=== PATIENT | male | born 1940 | race Caucasian/White ===

== ENCOUNTER 2019-01-20 09:03 | Outpatient (CLI) | payer MEDICARE, OTHER ==
--- NOTE | 2019-01-20 14:01 | XRAY Report ---
Reason: COUGH Procedure Date: 01/20/2019 Accession Number: [id number] / [id number] Procedure: XR - Chest 2 View X-Ray CPT Code: 14648 FULL RESULT: EXAM: CHEST RADIOGRAPHY EXAM DATE: 01/20/2019 09:25 AM. CLINICAL HISTORY: COUGH. COMPARISON: None. TECHNIQUE: 2 views. FINDINGS: Lungs/Pleura: Mildly prominent pulmonary markings projecting over the left heart on frontal view are not confirmed on lateral view. Bilateral airway thickening can be seen in the setting of bronchiolitis or reactive airways disease. No focal lung parenchymal consolidation identified to suggest superimposed pneumonia. No pleural effusion or pneumothorax. Mediastinum: The cardiomediastinal silhouette is not enlarged with post-CABG changes including median sternotomy. Other: None. IMPRESSION: Airway thickening is noted without definite consolidation. [facility]
== END 2019-01-20 09:04 | disposition home or self-care (01) ==
LOC: DI 09:03
PROVIDERS: ATTEND Nurse Practitioner Family
DX: R05 Cough (principal)
CPT/HCPCS: 71046

== ENCOUNTER 2019-05-11 11:40 | Outpatient (CLI) | payer MEDICARE, OTHER | END 2019-05-11 11:41 | disposition home or self-care (01) | LOC: RT 11:40 | PROVIDERS: ATTEND Internal Medicine Cardiovascular Disease | DX: I49.9 Cardiac arrhythmia, unspecified (principal); Z79.899 Other long term (current) drug therapy | CPT/HCPCS: 36415; 80053; 80061; 83721; 93005 ==

== ENCOUNTER 2019-05-11 12:11 | Outpatient (CLI) | payer MEDICARE, OTHER ==
[2019-05-11 12:58] LABS: ALBUMIN/GLOBULIN RATIO 1.2 (1.0-2.2); ALKALINE PHOSPHATASE 104 IU/L (42-121); ALT ALANINE AMINOTRANSFERASE 38 IU/L (10-60); AST ASPARTATE AMINOTRANSFERASE 25 IU/L (10-42); BILIRUBIN,TOTAL 1.1 mg/dL (0.2-1.0); BUN - BLOOD UREA NITROGEN 17 mg/dL (6-20); CALCIUM 9.5 mg/dL (8.5-10.3); CARBON DIOXIDE - CO2 30 mmol/L (21-32); CHLORIDE 103 mmol/L (101-111); CHOL/HDL RATIO 3.6 (<5.0); CHOLESTEROL 148 mg/dL; CREATININE 0.9 mg/dL (0.6-1.2); GFR - MDRD 82 (>89); GLUCOSE 95 mg/dL (70-100); HDL CHOLESTEROL 41 mg/dL; LDL CHOLESTEROL,CALCULATED 71 mg/dL; LDL/HDL RATIO 1.7 (<3.6); SODIUM 140 mmol/L (135-145); TOTAL PROTEIN 7.4 g/dL (6.7-8.2); VLDL CHOLESTEROL 36 mg/dL
== END 2019-05-11 12:12 | disposition home or self-care (01) ==
LOC: LAB 12:11
PROVIDERS: ATTEND Internal Medicine Cardiovascular Disease
DX: Z79.899 Other long term (current) drug therapy (principal)
CPT/HCPCS: 36415; 80053; 80061; 83721